=== PATIENT | male | born 1975 | race Two or more races ===

== ENCOUNTER 2019-08-22 17:50 | Outpatient (CLI) | payer SELFPAY | END 2019-08-22 17:51 | disposition home or self-care (01) | LOC: COV 17:50 | PROVIDERS: ATTEND Family Medicine | DX: R50.9 Fever, unspecified (principal); R05 Cough; R06.02 Shortness of breath; R06.2 Wheezing; M79.10 Myalgia, unspecified site; R53.83 Other fatigue; J02.9 Acute pharyngitis, unspecified; R19.7 Diarrhea, unspecified; Z20.828 Contact with and (suspected) exposure to other viral communicable diseases | CPT/HCPCS: 81599 ==

== ENCOUNTER 2019-10-10 15:59 | Emergency (ER) | payer MEDICAID ==
[2019-10-10 16:13] VITALS: BP 140/84
--- NOTE | 2019-10-10 16:31 | ED Physician Documentation ---
History of Present Illness - Stated complaint Stated Complaint: DOG BITE-LT LEG - Chief complaint Chief Complaint: Laceration - History obtained from History obtained from: Patient - History of Present Illness Timing: Prior to arrival, Today, How many hours ago (2) Pain level max: 8 Pain level now: 2 - Additonal information Additional information: 44-year-old male presents to the emergency department with chief complaint of dog bite wounds to his left lower extremity. Patient reports that he was walking his animal today and he was passing by another dog product owner who had a large dog on a leash as they were walking by the other animal lunged at his dog. Patient attempted to break up the dog fight and as he did the other animal attempted to bite his left leg. Patient has no previous history of dog bite injury. His last tetanus vaccine was within the last 2 years. Review of Systems Constitutional: denies: Fever, Chills, Myalgias, Fatigue Cardiac: denies: Chest pain / pressure, Palpitations Respiratory: denies: Dyspnea, Cough GI: denies: Abdominal Pain : denies: Dysuria Skin: reports: Lesions Musculoskeletal: denies: Neck pain, Back pain, Extremity pain Neurologic: denies: Generalized weakness, Focal weakness, Numbness, Syncope PD PAST MEDICAL HISTORY - Past Medical History Past Medical History: No - Past Surgical History Past Surgical History: No - Present Medications Home Medications: Ambulatory Orders Medication Instructions Recorded Confirmed Amox/Clav 875/125 [Augmentin] 1 each PO Q12H #14 tablet 10/10/19 - Allergies Allergies/Adverse Reactions: Allergies Allergy/AdvReac Type Severity Reaction Status Date / Time No Known Drug Allergies Allergy Verified 10/10/19 16:12 - Social History Does the pt smoke?: No Smoking Status: Never smoker Does the pt drink ETOH?: Yes Does the pt have substance abuse?: No - Immunizations Immunizations are current?: Yes - POLST Patient has POLST: No PD ED PE EXPANDED - General General: No acute distress, Well developed/nourished - Neck Neck: Supple w/out meningeal sx, No tenderness - Cardiac Cardiac: Regular Rate, Radial strong equal - Respiratory Respiratory: Clear to ausultation mehrdad - Back Back: Normal exam - Derm Derm: Warm and dry, Other (bite abrasion left lower leg just below the knee ove rtibial tuberosity. no puncture wound noted. ) - Extremities Extremities: Left leg (1 inch abrasion without puncture wound left lower leg just below the knee over the tibial tuberosity.), Other (normal gait) - Neuro Neuro: Alert and Oriented X 3, Confused. No: Weakness Results - Vitals Vitals: Vital Signs - 24 hr 10/10/19 16:08 Temperature 98.4 C H Heart Rate 78 Respiratory 14 Rate Blood Pressure 140/84 H O2 Saturation 96 Oxygen O2 Source Room air PD MEDICAL DECISION MAKING - ED course Complexity details: d/w patient ED course: 44-year-old male here with a dog bite injury to his left lower leg. Patient's tetanus is up-to-date. There does not seem to be an obvious puncture wound. However will prescribe Augmentin twice a day for 7 days. Given that this was a dog bite injury and the lack of rabies in domesticated animals in [facility] will defer rabies vaccination today. Discussed emergent return precautions for concern for worsening infection. Advised Motrin for analgesia Departure - Departure Disposition: 01 Home, Self Care Clinical Impression: Abrasion Dog bite of left lower leg Qualifiers: Encounter type: initial encounter Qualified Code(s): S81.852A - Open bite, left lower leg, initial encounter; W54.0XXA - Bitten by dog, initial encounter Condition: Stable Instructions: ED Bite Dog Prescriptions: Amox/Clav 875/125 [Augmentin] 1 each PO Q12H #14 tablet Comments: Juvencio you have superficial dog bite injury to your left lower leg. Please wash the abrasions every day with warm soap and water and apply any antibiotic ointment like Neosporin or bacitracin. To help prevent infection I prescribed an antibiotic to take twice a day for the next week. Return to the emergency department if you have increased pain redness or swelling around the dog bite abrasions or any further concerns of infection.
== END 2019-10-10 17:09 | disposition home or self-care (01) ==
LOC: ED 15:59
DX: S80.872A Other superficial bite, left lower leg, initial encounter (principal); W54.0XXA Bitten by dog, initial encounter; Y93.K1 Activity, walking an animal; Y92.830 Public park as the place of occurrence of the external cause
CPT/HCPCS: 99282; 99284

== ENCOUNTER 2020-01-01 20:15 | Outpatient (CLI) | payer OTHER, MEDICAID | END 2020-01-01 20:16 | disposition left against medical advice (07) | LOC: EMS 20:15 | PROVIDERS: ATTEND Surgery | DX: R06.00 Dyspnea, unspecified (principal) ==

== ENCOUNTER 2020-01-01 21:54 | Emergency (ER) | payer OTHER, MEDICAID ==
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
== END 2020-01-01 22:52 | disposition home or self-care (01) ==
LOC: ED 21:54
DX: S80.212A Abrasion, left knee, initial encounter (principal); S40.212A Abrasion of left shoulder, initial encounter; Y35.813A Legal intervention involving manhandling, suspect injured, initial encounter; E11.9 Type 2 diabetes mellitus without complications
CPT/HCPCS: 99282

== ENCOUNTER 2020-07-17 08:00 | Outpatient (CLI) | payer MEDICAID, OTHER ==
[2020-07-17 08:49] LABS: BASOPHILS # (AUTO) 0.1 10^3/uL (0.0-0.1); BASOPHILS % (AUTO) 0.9 %; EOSINOPHILS # (AUTO) 0.1 10^3/uL (0.0-0.7); EOSINOPHILS % (AUTO) 1.7 %; HCT - HEMATOCRIT 48.8 % (42.0-52.0); HGB - HEMOGLOBIN 16.4 g/dL (14.0-18.0); LYMPHOCYTES # (AUTO) 2.8 10^3/uL (1.5-3.5); LYMPHOCYTES % (AUTO) 41.2 %; MEAN CORPUSCULAR HGB CONC 33.6 g/dL (32.0-36.0); MEAN CORPUSCULAR VOLUME 89.2 fL (80.0-94.0); MEAN PLATELET VOLUME 10.6 fL (7.4-11.4); MONOCYTES # (AUTO) 1.2 10^3/uL (0.0-1.0); MONOCYTES % (AUTO) 17.1 %; NEUTROPHILS # (AUTO) 2.7 10^3/uL (1.5-6.6); PLT - PLATELET COUNT 245 10^3/uL (130-450); RED BLOOD COUNT 5.47 10^6/uL (4.70-6.10); WHITE BLOOD COUNT 6.9 x10^3/uL (4.8-10.8)
[2020-07-17 09:05] LABS: ALBUMIN 4.1 g/dL (3.2-5.5); ALBUMIN/GLOBULIN RATIO 1.4 (1.0-2.2); ALKALINE PHOSPHATASE 66 IU/L (42-121); ALT ALANINE AMINOTRANSFERASE 75 IU/L (10-60); AST ASPARTATE AMINOTRANSFERASE 34 IU/L (10-42); BILIRUBIN,TOTAL 0.5 mg/dL (0.2-1.0); BUN - BLOOD UREA NITROGEN 14 mg/dL (6-20); CALCIUM 9.9 mg/dL (8.5-10.3); CARBON DIOXIDE - CO2 31 mmol/L (21-32); CHLORIDE 100 mmol/L (101-111); CREATININE 1.1 mg/dL (0.6-1.2); GFR - MDRD 73 (>89); GLUCOSE 121 mg/dL (70-100); SODIUM 143 mmol/L (135-145); TOTAL PROTEIN 7.1 g/dL (6.7-8.2); VALPROIC ACID (DEPAKOTE) 34.6 ug/mL
== END 2020-07-17 23:59 | disposition home or self-care (01) ==
LOC: LAB.R 08:00
PROVIDERS: ATTEND Registered Nurse
DX: R79.89 Other specified abnormal findings of blood chemistry (principal); T42.6X1A Poisoning by other antiepileptic and sedative-hypnotic drugs, accidental (unintentional), initial encounter; R68.89 Other general symptoms and signs
CPT/HCPCS: 36415; 80053; 80164; 85025

== ENCOUNTER 2020-08-07 08:00 | Outpatient (CLI) | payer OTHER | END 2020-08-07 23:59 | disposition home or self-care (01) | LOC: LAB.R 08:00 | PROVIDERS: ATTEND Registered Nurse | DX: Z51.81 Encounter for therapeutic drug level monitoring (principal); Z79.899 Other long term (current) drug therapy | CPT/HCPCS: 80164 ==

== ENCOUNTER 2020-08-16 08:00 | Outpatient (CLI) | payer OTHER ==
[2020-08-16 12:11] LABS: ALBUMIN 4.3 g/dL (3.2-5.5); ALBUMIN/GLOBULIN RATIO 1.3 (1.0-2.2); BILIRUBIN,TOTAL 0.6 mg/dL (0.2-1.0); CALCIUM 9.8 mg/dL (8.5-10.3); CREATININE 0.9 mg/dL (0.6-1.2); POTASSIUM 3.5 mmol/L (3.5-5.0); TOTAL PROTEIN 7.6 g/dL (6.7-8.2)
== END 2020-08-16 23:59 | disposition home or self-care (01) ==
LOC: LAB.R 08:00
PROVIDERS: ATTEND Registered Nurse
DX: E11.9 Type 2 diabetes mellitus without complications (principal)
CPT/HCPCS: 80053; 83036; 84443; 85025

== ENCOUNTER 2020-08-21 08:00 | Outpatient (CLI) | payer OTHER ==
[2020-08-21 08:34] LABS: BASOPHILS % (AUTO) 0.7 %; EOSINOPHILS # (AUTO) 0.2 10^3/uL (0.0-0.7); EOSINOPHILS % (AUTO) 2.6 %; LYMPHOCYTES # (AUTO) 2.4 10^3/uL (1.5-3.5); LYMPHOCYTES % (AUTO) 41.7 %; MEAN CORPUSCULAR HEMOGLOBIN 29.9 pg (27.0-31.0); MEAN CORPUSCULAR HGB CONC 33.3 g/dL (32.0-36.0); MEAN CORPUSCULAR VOLUME 89.8 fL (80.0-94.0); MEAN PLATELET VOLUME 11.7 fL (7.4-11.4); MONOCYTES # (AUTO) 0.6 10^3/uL (0.0-1.0); MONOCYTES % (AUTO) 10.7 %; NEUTROPHILS # (AUTO) 2.5 10^3/uL (1.5-6.6); NEUTROPHILS % (AUTO) 43.8 %; PLT - PLATELET COUNT 196 10^3/uL (130-450); RED BLOOD COUNT 5.01 10^6/uL (4.70-6.10); RED CELL DISTRIBUTION WIDTH 13.7 % (12.0-15.0); WHITE BLOOD COUNT 5.7 x10^3/uL (4.8-10.8)
[2020-08-21 10:43] LABS: ESTIMATED AVERAGE GLUCOSE 166 mg/dL (70-100); HEMOGLOBIN A1c% 7.4 % (4.27-6.07)
== END 2020-08-21 23:59 | disposition home or self-care (01) ==
LOC: LAB.R 08:00
PROVIDERS: ATTEND Registered Nurse
DX: R73.09 Other abnormal glucose (principal); R79.9 Abnormal finding of blood chemistry, unspecified
CPT/HCPCS: 36415; 83036; 85025

== ENCOUNTER 2020-09-10 08:00 | Outpatient (CLI) | payer OTHER ==
[2020-09-10 09:49] LABS: ALBUMIN 4.3 g/dL (3.2-5.5); ALBUMIN/GLOBULIN RATIO 1.4 (1.0-2.2); ALKALINE PHOSPHATASE 64 IU/L (42-121); ALT ALANINE AMINOTRANSFERASE 59 IU/L (10-60); AST ASPARTATE AMINOTRANSFERASE 43 IU/L (10-42); BILIRUBIN,TOTAL 0.8 mg/dL (0.2-1.0); BUN - BLOOD UREA NITROGEN 10 mg/dL (6-20); CALCIUM 9.9 mg/dL (8.5-10.3); CARBON DIOXIDE - CO2 32 mmol/L (21-32); CHLORIDE 97 mmol/L (101-111); GFR - MDRD 82 (>89); GLUCOSE 277 mg/dL (70-100); POTASSIUM 4.3 mmol/L (3.5-5.0); SODIUM 138 mmol/L (135-145); TOTAL PROTEIN 7.3 g/dL (6.7-8.2)
== END 2020-09-10 23:59 | disposition home or self-care (01) ==
LOC: LAB.R 08:00
PROVIDERS: ATTEND Registered Nurse
DX: R79.89 Other specified abnormal findings of blood chemistry (principal); Z51.81 Encounter for therapeutic drug level monitoring; Z79.899 Other long term (current) drug therapy
CPT/HCPCS: 80053; 80164